=== PATIENT | male | born 1955 | race Caucasian/White ===

== ENCOUNTER 2018-07-10 08:50 | Emergency (ER) | payer OTHER ==
[~2018-07-10] VITALS: Ht 182.8 cm; Wt 119.7 kg
[~2018-07-10 08:50] MED LIST: CATAFLAM50 MG PO; HYDROCODONE BIT1 T11 PO; VENLAFAXINE H37.5 M5 PO
== END 2018-07-10 11:32 | disposition home or self-care (01) ==
LOC: ED 08:50
DX: S90.32XA Contusion of left foot, initial encounter (principal); Z88.0 Allergy status to penicillin; Z79.899 Other long term (current) drug therapy; Z90.49 Acquired absence of other specified parts of digestive tract; V09.9XXA Pedestrian injured in unspecified transport accident, initial encounter; Y93.89 Activity, other specified; Y92.69 Other specified industrial and construction area as the place of occurrence of the external cause; Y99.0 Civilian activity done for income or pay

== ENCOUNTER → 2018-07-24 | Outpatient (CLI) | payer OTHER | END | disposition home or self-care (01) | LOC: RAD 11:40 | DX: M54.5 Low back pain (principal) ==

== ENCOUNTER 2019-03-14 20:33 | Emergency (ER) | payer OTHER ==
[~2019-03-14] VITALS: Ht 182.8 cm; Wt 108.9 kg
[2019-03-14] MEDS ORDERED: CELEBREX50 MG PO (20:44)
== END 2019-03-14 21:49 | disposition home or self-care (01) ==
LOC: ED 20:33
DX: S61.412A Laceration without foreign body of left hand, initial encounter (principal); Z23 Encounter for immunization; Z88.0 Allergy status to penicillin; Z79.899 Other long term (current) drug therapy; W26.0XXA Contact with knife, initial encounter; Y93.89 Activity, other specified; Y92.89 Other specified places as the place of occurrence of the external cause; Y99.8 Other external cause status

== ENCOUNTER 2019-10-04 10:09 | Emergency (ER) | payer SELFPAY ==
[~2019-10-04] VITALS: Wt 108.9 kg
[~2019-10-04 10:09] MED LIST changes: +CELEBREX50 MG PO
[2019-10-04] MEDS ORDERED: ANTIBIOTIC28.4 GM T (10:43)
[2019-10-04] MEDS ORDERED: SEPTDS PO (10:43)
[2019-10-04] MEDS ORDERED: IBU800 MG PO (11:29)
== END 2019-10-04 11:25 | disposition home or self-care (01) ==
LOC: ED 10:09
DX: S61.217A Laceration without foreign body of left little finger without damage to nail, initial encounter (principal); Z88.0 Allergy status to penicillin; Z79.899 Other long term (current) drug therapy; W26.9XXA Contact with unspecified sharp object(s), initial encounter; Y93.89 Activity, other specified; Y92.89 Other specified places as the place of occurrence of the external cause; Y99.8 Other external cause status

== ENCOUNTER 2019-10-20 10:44 | Emergency (ER) | payer SELFPAY ==
[~2019-10-20 10:44] MED LIST changes: +ANTIBIOTIC28.4 GM T; +IBU800 MG PO; +SEPTDS PO
== END 2019-10-20 11:15 | disposition home or self-care (01) ==
LOC: ED 10:44
DX: S61.213D Laceration without foreign body of left middle finger without damage to nail, subsequent encounter (principal); Z88.0 Allergy status to penicillin; Z79.899 Other long term (current) drug therapy; X58.XXXD Exposure to other specified factors, subsequent encounter

== ENCOUNTER 2020-05-10 12:54 | Emergency (ER) | payer OTHER ==
[~2020-05-10] VITALS: Ht 182.8 cm; Wt 99.8 kg
[2020-05-10 13:27] LABS: BASO # 0.1 10*3/uL (0.0-0.1); BASO % 0.8 % (0.0-1.0); EOS # 0.1 10*3/uL (0.0-0.4); EOS % 1.1 % (1.0-4.0); HEMATOCRIT 42.6 % (42.0-52.0); LYMPH # 3.1 10*3/uL (1.3-4.4); LYMPH % 36.7 % (27.0-41.0); MEAN CELL VOLUME 87.7 fl (80.0-94.0); MEAN CORPUSCULAR HGB 27.6 pg (27.0-31.0); MEAN CORPUSCULAR HGB CONC 31.5 g/dl (33.0-37.0); MEAN PLATELET VOLUME 9.8 fl (9.6-12.3); MONO # 0.4 10*3/uL (0.1-1.0); NEUT # 4.7 10*3/uL (2.3-7.9); NEUT % 55.6 % (47.0-73.0); PLATELET COUNT AUTOMATED 270 10*3/uL (130-400); RED BLOOD COUNT 4.86 10*6/uL (4.50-5.90); RED CELL DISTRI WIDTH 13.4 % (0-14.5); WHITE BLOOD COUNT 8.5 10*3/uL (4.8-10.8)
[2020-05-10 13:37] LABS: ACT PARTIAL THROMBO TIME 25.2 SECONDS (20.0-32.1)
[2020-05-10 13:42] LABS: ALBUMIN 3.9 gm/dl (3.1-4.5); ALKALINE PHOSPHATASE 88 U/L (45-117); BUN 12 mg/dl (7-24); CHLORIDE 108 mmol/L (98-107); CREATININE 1.27 mg/dL (0.70-1.30); LIPASE 61 U/L (73-393); POTASSIUM 3.8 mmol/L (3.5-5.1); SGOT/AST 20 IU/L (3-35); SGPT/ALT 31 U/L (12-78); SODIUM 140 mmol/L (136-145); TOTAL PROTEIN 7.5 gm/dL (6.4-8.2)
[2020-05-10] MEDS ORDERED: Motrin,Rufen800 MG PO (16:27)
== END 2020-05-10 16:30 | disposition home or self-care (01) ==
LOC: ED 12:54
PROVIDERS: Emergency Medicine
DX: S22.32XA Fracture of one rib, left side, initial encounter for closed fracture (principal); Z90.49 Acquired absence of other specified parts of digestive tract; Z79.899 Other long term (current) drug therapy; Z88.0 Allergy status to penicillin; V49.88XA Car occupant (driver) (passenger) injured in other specified transport accidents, initial encounter; Y93.89 Activity, other specified; Y92.828 Other wilderness area as the place of occurrence of the external cause; Y99.9 Unspecified external cause status

== ENCOUNTER 2021-02-02 20:25 | Emergency (ER) | payer OTHER ==
[~2021-02-02] VITALS: Ht 182.8 cm; Wt 124.7 kg
[~2021-02-02 20:25] MED LIST changes: +Motrin,Rufen800 MG PO
== END 2021-02-02 22:28 | disposition home or self-care (01) ==
LOC: ED 20:25
DX: S80.811A Abrasion, right lower leg, initial encounter (principal); S87.81XA Crushing injury of right lower leg, initial encounter; Z88.0 Allergy status to penicillin; Z79.899 Other long term (current) drug therapy; X58.XXXA Exposure to other specified factors, initial encounter; Y93.89 Activity, other specified; Y92.89 Other specified places as the place of occurrence of the external cause; Y99.8 Other external cause status